=== PATIENT | male | born 1990 | race Caucasian/White ===

== ENCOUNTER 2016-12-14 08:18 | Emergency (ER) | payer SELFPAY ==
[~2016-12-14] VITALS: Ht 175.3 cm; Wt 72.6 kg
[~2016-12-14 08:18] MED LIST: CODE-54 PO; SULF1TAB38 PO
[2016-12-14] MEDS ORDERED: HYDR50CA3 (09:27)
[2016-12-14] MEDS ORDERED: TOPI50TA13 (09:27)
[2016-12-14 09:33] LABS: BASOPHILS % (AUTO) 0 % (0-10); EOSINOPHILS # (AUTO) 0.2 10^3/uL (0.0-0.3); EOSINOPHILS % (AUTO) 2 % (0-10); LYMPHOCYTES # (AUTO) 1.1 X 10^3 (1.0-4.0); LYMPHOCYTES % (AUTO) 12 % (12-44); MEAN CORPUSCULAR HEMOGLOBIN 33 PG (25-34); MEAN CORPUSCULAR HGB CONC 36 G/DL (32-36); MEAN CORPUSCULAR VOLUME 92 FL (80-99); MEAN PLATELET VOLUME 10.1 FL (7.4-10.4); MONOCYTES # (AUTO) 0.8 X 10^3 (0.0-1.0); MONOCYTES % (AUTO) 8 % (0-12); NEUTROPHILS # (AUTO) 7.4 X 10^3 (1.8-7.8); NEUTROPHILS % (AUTO) 78 % (42-75); PLATELET COUNT 246 10^3/uL (130-400); RED BLOOD COUNT 4.73 10^6/uL (4.35-5.85); RED CELL DISTRIBUTION WIDTH 13.2 % (10.0-14.5); WHITE BLOOD COUNT 9.5 10^3/uL (4.3-11.0)
[2016-12-14 09:45] LABS: ALANINE AMINOTRANSFERASE 21 U/L (0-55); ALBUMIN 4.7 G/DL (3.2-4.5); ANION GAP 9 MMOL/L (5-14); ASPARTATE AMINO TRANSFERASE 22 U/L (5-34); BILIRUBIN,TOTAL 0.7 MG/DL (0.1-1.0); BLOOD UREA NITROGEN 17 MG/DL (7-18); BUN/CREATININE RATIO 13; CALCIUM 10.2 MG/DL (8.5-10.1); CARBON DIOXIDE 25 MMOL/L (21-32); CHLORIDE 106 MMOL/L (98-107); CREATININE SERUM 1.34 MG/DL (0.60-1.30); GFR ESTIMATED > 60; GLUCOSE 128 MG/DL (70-105); POTASSIUM 4.4 MMOL/L (3.6-5.0); SALICYLATE < 5.0 MG/DL (5.0-20.0); SODIUM 140 MMOL/L (135-145); TOTAL PROTEIN 7.4 G/DL (6.4-8.2)
[2016-12-14 09:50] LABS: ACETAMINOPHEN < 10 UG/ML (10-30); ALCOHOL < 10 MG/DL (<10)
--- NOTE | 2016-12-14 11:02 | ED Psychosocial ---
General Chief Complaint: Substance Abuse Stated Complaint: SEIZURE, OVERDOSED ON MED Nursing Triage Note: PT STATES HAS TAKEN APPROX 30 HYDROXAZINE 50MG, TOPAMAX 13? STATES PT. GIRL FRIEND STATES HAD SEIZURE AT 0600 LASTED APPROX 30SEC. PT IS NOT POST ICTAL ABLE TO WALK TO ROOM AND ANSWER QUESTIONS FOR STAFF. Source: patient Exam Limitations: no limitations History of Present Illness Time seen by provider: 10:57 Initial Comments The patient is a 26-year-old white male who was brought to the emergency room this morning. His complaint and observation by his mother were that he has been depressed and that he took multiple medications last night for the purpose of suicide. She states that he is been off his antidepressant for several weeks. He gives a convoluted story about looking at the picture of his daughter and feeling bad. He apparently has made a gesture to suicide in the past. He reports that he took methamphetamine and use marijuana recently. He allegedly took 30 hydralazine 50 mg and 13 Topamax of unknown milligrams. He was reported to have had a seizure at 0600 Timing/Duration: yesterday Allergies and Home Medications Allergies Coded Allergies: No Known Allergies (Verified Allergy, Unknown, 03/31/07) Home Medications Hydroxyzine Pamoate 50 Mg Capsule, #120 (Reported) Topiramate 50 Mg Tablet, #30 (Reported) Constitutional: see HPI EENTM: no symptoms reported Respiratory: no symptoms reported Cardiovascular: no symptoms reported Gastrointestinal: no symptoms reported Genitourinary: no symptoms reported Musculoskeletal: no symptoms reported Skin: no symptoms reported Psychiatric/Neurological: No Symptoms Reported Past Fpommka-Eooetk-Tqinab Hx Patient Social History Alcohol Use: Regular Use Recreational Drug Use: Yes Drug of Choice: POT AND METH Smoking Status: Current Everyday Smoker Type Used: Cigarettes Recent Foreign Travel: No Contact w/Someone Who Travel: No Recent Infectious Disease Expo: No Recent Hopitalizations: Yes Respiratory Hx Respiratory Disorders: No Reproductive System Hx Reproductive Disorders: No Genitourinary Hx Genitourinary Disorders: No Musculoskeletal Hx Musculoskeletal Disorders: No Endocrine Hx Endocrine Disorders: No HEENT HX ENT Disorders: No Psychosocial Hx Psychiatric Problems: No Behavioral Health Disorders: Anxiety, Depression Blood Transfusions Hx Blood Disorders: No Physical Exam Vital Signs Vital Sign - Last 12Hours 12/14/16 08:45 Temp 97.3 Pulse 76 Resp 14 B/P (MAP) 126/94 Pulse Ox 100 Capillary Refill : Less Than 3 Seconds General Appearance: other HEENT: normal ENT inspection Neck: non-tender, full range of motion, supple, normal inspection Respiratory: chest non-tender, lungs clear, normal breath sounds, no respiratory distress, no accessory muscle use Cardiovascular: normal peripheral pulses, regular rate, rhythm, no edema, no gallop, no JVD, no murmur Gastrointestinal: normal bowel sounds, non tender, soft, no organomegaly, no pulsatile mass Extremities: normal range of motion, non-tender, normal inspection, no pedal edema, no calf tenderness, normal capillary refill Neurologic/Psychiatric: 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, no motor/sensory deficits, alert, normal mood/affect, oriented x 3, abnormal cerebellar tests, abnormal 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 II-XII Appearance/Memory: appropriate appearance, impaired recent memory Behavior/Eye Contact: good eye contact, normal speech Thoughts/Hallucinations: flight of ideas Skin: normal color, warm/dry Lymphatic: no adenopathy Progress/Results/Core Measures Results/Orders Lab Results Laboratory Tests Test 12/14/16 09:00 12/14/16 09:35 Range/Units White Blood Count 9.5 4.3-11.0 10^3/uL Red Blood Count 4.73 4.35-5.85 10^6/uL Hemoglobin 15.5 13.3-17.7 G/DL Hematocrit 43 40-54 % Mean Corpuscular Volume 92 80-99 FL Mean Corpuscular Hemoglobin 33 25-34 PG Mean Corpuscular Hemoglobin Concent 36 32-36 G/DL Red Cell Distribution Width 13.2 10.0-14.5 % Platelet Count 246 130-400 10^3/uL Mean Platelet Volume 10.1 7.4-10.4 FL Neutrophils (%) (Auto) 78 H 42-75 % Lymphocytes (%) (Auto) 12 12-44 % Monocytes (%) (Auto) 8 0-12 % Eosinophils (%) (Auto) 2 0-10 % Basophils (%) (Auto) 0 0-10 % Neutrophils # (Auto) 7.4 1.8-7.8 X 10^3 Lymphocytes # (Auto) 1.1 1.0-4.0 X 10^3 Monocytes # (Auto) 0.8 0.0-1.0 X 10^3 Eosinophils # (Auto) 0.2 0.0-0.3 10^3/uL Basophils # (Auto) 0.0 0.0-0.1 10^3/uL Sodium Level 140 135-145 MMOL/L Potassium Level 4.4 3.6-5.0 MMOL/L Chloride Level 106 98-107 MMOL/L Carbon Dioxide Level 25 21-32 MMOL/L Anion Gap 9 5-14 MMOL/L Blood Urea Nitrogen 17 7-18 MG/DL Creatinine 1.34 H 0.60-1.30 MG/DL Estimat Glomerular Filtration Rate > 60 BUN/Creatinine Ratio 13 Glucose Level 128 H 70-105 MG/DL Calcium Level 10.2 H 8.5-10.1 MG/DL Total Bilirubin 0.7 0.1-1.0 MG/DL Aspartate Amino Transf (AST/SGOT) 22 5-34 U/L Alanine Aminotransferase (ALT/SGPT) 21 0-55 U/L Alkaline Phosphatase 56 40-136 U/L Total Protein 7.4 6.4-8.2 G/DL Albumin 4.7 H 3.2-4.5 G/DL Salicylates Level < 5.0 L 5.0-20.0 MG/DL Acetaminophen Level < 10 L 10-30 UG/ML Serum Alcohol < 10 <10 MG/DL Urine Opiates Screen NEGATIVE NEGATIVE Urine Oxycodone Screen NEGATIVE NEGATIVE Urine Methadone Screen NEGATIVE NEGATIVE Urine Propoxyphene Screen NEGATIVE NEGATIVE Urine Barbiturates Screen NEGATIVE NEGATIVE Ur Tricyclic Antidepressants Screen NEGATIVE NEGATIVE Urine Phencyclidine Screen NEGATIVE NEGATIVE Urine Amphetamines Screen NEGATIVE NEGATIVE Urine Methamphetamines Screen POSITIVE H NEGATIVE Urine Benzodiazepines Screen NEGATIVE NEGATIVE Urine Cocaine Screen NEGATIVE NEGATIVE Urine Cannabinoids Screen POSITIVE H NEGATIVE My Orders Orders - MARTI KISER MD Acetaminophen (12/14/16 09:26) Alcohol (12/14/16 09:26) Cbc With Automated Diff (12/14/16:) Comprehensive Metabolic Panel (12/14/16:26) Drug Screen Stat (Urine) (12/14/16:26) Salicylate (12/14/16:26) Ekg Tracing (12/14/16 12:52) General/Regular (12/14/16 Lunch) Vital Signs/I&O Vital Sign - Last 12Hours 12/14/16 08:45 Temp 97.3 Pulse 76 Resp 14 B/P (MAP) 126/94 Pulse Ox 100 Blood Pressure Mean: 105 Departure Communication Progress Notes 1423 ultimately arrangements have been made with [facility] in [facility]. Dr. Jeffries will be the attending. Impression Impression: Primary Impression: Suicide ideation Disposition: 65 XFER TO PSYCH HOSP/UNIT Condition: Stable/Unchanged Departure-Patient Inst. Decision time for Depature: 14:23 Referrals: [facility] [place] Primary Care Physician Patient Instructions: ALCOHOL AND SUBSTANCE ABUSE MARTI IKSER MD December 14, 2016 11:02
[2016-12-14 14:52] VITALS: BP 128/75
== END 2016-12-14 14:44 ==
LOC: EDUNIT# 08:18 → ER 08:21
DX: T46.5X2A Poisoning by other antihypertensive drugs, intentional self-harm, initial encounter (principal); T42.72XA Poisoning by unspecified antiepileptic and sedative-hypnotic drugs, intentional self-harm, initial encounter; F15.10 Other stimulant abuse, uncomplicated; F12.90 Cannabis use, unspecified, uncomplicated; F17.210 Nicotine dependence, cigarettes, uncomplicated; G40.909 Epilepsy, unspecified, not intractable, without status epilepticus; Y92.009 Unspecified place in unspecified non-institutional (private) residence as the place of occurrence of the external cause
CPT/HCPCS: 36415; 80053; 80306; 80320; 80329; 85025; 93005

== ENCOUNTER 2017-03-05 15:16 | Emergency (ER) | payer SELFPAY ==
[~2017-03-05] VITALS: Ht 177.8 cm; Wt 77.1 kg
[~2017-03-05 15:16] MED LIST changes: +HYDR50CA3; +TOPI50TA13
[2017-03-05] MEDS ORDERED: fentaNYL INJECTION 100 MCG/2 ML AMP ONE (15:17)
[2017-03-05] MEDS ORDERED: fentaNYL INJECTION 100 MCG/2 ML AMP IVP STA (15:32)
[2017-03-05] MEDS ORDERED: TETANUS,DIPTH,PERTUSS P/F (BOOSTRIX) 0.5 ML VIAL IM STA (15:32)
[2017-03-05] MEDS ORDERED: NS IV 1000 ML 1,000 ML IV ONE (15:32)
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
[2017-03-05 15:47] LABS: BASOPHILS # (AUTO) 0.1 10^3/uL (0.0-0.1); BASOPHILS % (AUTO) 0 % (0-10); EOSINOPHILS # (AUTO) 0.1 10^3/uL (0.0-0.3); EOSINOPHILS % (AUTO) 1 % (0-10); LYMPHOCYTES # (AUTO) 3.7 X 10^3 (1.0-4.0); LYMPHOCYTES % (AUTO) 26 % (12-44); MEAN CORPUSCULAR HEMOGLOBIN 33 PG (25-34); MEAN CORPUSCULAR HGB CONC 36 G/DL (32-36); MEAN CORPUSCULAR VOLUME 91 FL (80-99); MEAN PLATELET VOLUME 9.9 FL (7.4-10.4); MONOCYTES % (AUTO) 7 % (0-12); NEUTROPHILS # (AUTO) 9.2 X 10^3 (1.8-7.8); NEUTROPHILS % (AUTO) 65 % (42-75); PLATELET COUNT 395 10^3/uL (130-400); RED BLOOD COUNT 5.39 10^6/uL (4.35-5.85); RED CELL DISTRIBUTION WIDTH 12.8 % (10.0-14.5); WHITE BLOOD COUNT 14.1 10^3/uL (4.3-11.0)
--- NOTE | 2017-03-05 15:52 | Diagnostic Imaging Report ---
EXAMINATION: Three views of the left hand. INDICATION: Injury. FINDINGS: There are multiple mildly radiopaque foreign bodies seen in the soft tissues of the hand around the distal metacarpal region in the dorsal and ventral aspect. This could be glass or plastic. There is no fracture or dislocation seen. IMPRESSION: There are multiple mildly radiopaque foreign bodies in the hand around the metacarpal region. Dictated by: Dictated on workstation # [id number]
[2017-03-05 16:00] LABS: ALANINE AMINOTRANSFERASE 25 U/L (0-55); ALCOHOL 180 MG/DL (<10); ANION GAP 18 MMOL/L (5-14); ASPARTATE AMINO TRANSFERASE 22 U/L (5-34); BILIRUBIN,TOTAL 0.4 MG/DL (0.1-1.0); BLOOD UREA NITROGEN 15 MG/DL (7-18); BUN/CREATININE RATIO 12; CALCIUM 10.8 MG/DL (8.5-10.1); CARBON DIOXIDE 21 MMOL/L (21-32); CHLORIDE 105 MMOL/L (98-107); CREATININE SERUM 1.25 MG/DL (0.60-1.30); GFR ESTIMATED > 60; GLUCOSE 96 MG/DL (70-105); POTASSIUM 3.5 MMOL/L (3.6-5.0); SODIUM 144 MMOL/L (135-145); TOTAL PROTEIN 8.1 GM/DL (6.4-8.2)
[2017-03-05] MEDS ORDERED: morphine INJ 10 MG/ML 1ML (SYR OR VIAL) IVP STA (16:03)
[2017-03-05 16:12] LABS: BAND NEUTROPHILS 1 %; BASOPHILS % (MANUAL) 0 %; EOSINOPHILS % (MANUAL) 1 %; LYMPHOCYTES % (MANUAL) 39 %; NEUTROPHILS % (MANUAL) 50 %
[2017-03-05] MEDS ORDERED: ceFAZolin INJECTION 1,000 MG in NS (IVPB) 50 ML IV ONE (16:45)
[2017-03-05] MEDS ORDERED: HYDROmorphone (DILAUDID) 2 MG/ML VIAL IM STA (17:45)
[2017-03-05 17:50] VITALS: BP 137/89
[2017-03-05] MEDS ORDERED: HYDROmorphone (DILAUDID) 2 MG/ML VIAL IVP ONE (18:00)
== END 2017-03-05 17:50 | disposition short-term general hospital (02) ==
LOC: EDUNIT# 15:16 → ER 15:17
DX: S66.912A Strain of unspecified muscle, fascia and tendon at wrist and hand level, left hand, initial encounter (principal); S67.22XA Crushing injury of left hand, initial encounter; F41.9 Anxiety disorder, unspecified; F32.9 Major depressive disorder, single episode, unspecified; F12.90 Cannabis use, unspecified, uncomplicated; F15.90 Other stimulant use, unspecified, uncomplicated; F17.210 Nicotine dependence, cigarettes, uncomplicated; Z98.890 Other specified postprocedural states; Z23 Encounter for immunization; W23.0XXA Caught, crushed, jammed, or pinched between moving objects, initial encounter; V67.5XXA Driver of heavy transport vehicle injured in collision with fixed or stationary object in traffic accident, initial encounter
CPT/HCPCS: 36415; 73130; 80053; 80320; 85007; 85027; 90471; 90715; 96365; 96375